=== PATIENT | female | born 1965 | race Caucasian/White ===

== ENCOUNTER 2022-11-28 20:17 | Emergency (ER) | payer BC, SELFPAY ==
[2022-11-28 20:40] VITALS: BP 140/89; PULSE 89; RESP 18; TEMP 36.7; O2SAT 99; BMI 33.3
[2022-11-28 21:41] VITALS: BP 139/94
--- NOTE | 2022-11-28 21:42 | ED.NURSE ---
Orthostatic readings: Lyin/94, HR 87, sitting 140/89, HR 87, standin/106, HR 89. Blood pressure cuff on right upper arm
[2022-11-28] MEDS: LORazepam 1 MG TABLET 0.5 MG PO (21:47)
[2022-11-28] MEDS: GI COCKTAIL (VISC LIDO/ANTACID) 30 ML PO (21:48)
[2022-11-28 21:59] LABS: Chloride* 107 mmol/L (96-114); Potassium* 4.2 mmol/L (3.6-5.1); Sodium* 135 mmol/L (135-149)
[2022-11-28 22:02] LABS: Blood Urea Nitrogen* 14 mg/dL (7-30); Calcium* 9.1 mg/dL (8.4-10.6); Carbon Dioxide* 23 mmol/L (20-32); Creatinine* 0.7 mg/dL (0.5-1.5); Est. Creatinine Clearance* 80.75; Estimated Glomerular Filt Rate 101 ml/min; Glucose* 119 mg/dL (60-115)
[2022-11-28 22:03] LABS: D Dimer Quantitative* 0.27 ug/ml (0.00-0.50)
[2022-11-28 22:15] LABS: Troponin I* < 0.01 ng/mL (0.01-0.04)
--- NOTE | 2022-11-29 07:42 | ED_ITS ---
HPI - General Adult General Chief complaint: Unspecified Complaint, Adult Stated complaint: High Blood Pressure Tachy Shaky Time Seen by Provider: 11/28/22 20:49 History of Present Illness HPI narrative: 57-year-old woman presenting to the emergency department with concern of potential heart attack. She describes about 6 hours ago was anticipating readying for a conversation about art yarsani. This was to be done virtually. She describes some feelings of lightheadedness that may have been somewhat orthostatic in nature. Diaphoretic, nausea in particular a prominent feature that came and went. No fever. I do not believe she actually vomited. And then some persistent discomfort in the epigastrium. Does not really have heartburn though recalls some ulcers in the past? Further conversation does reveal history of anxiety as well. She has been recently experiencing some episodes of tingling this in her extremities, her hands, symmetrical. Does have a history of migraines usually affecting the left side of her head. Was seen last week ultimately in emergency department with scans for right-sided head pain. This workup apparently was negative. She was however diagnosed subsequently with shingles on the left side of her face/head and neck. Has not had any lesions. Describes more of a burning sensation. Initiated on Valtrex. Is essentially asymptomatic now. Feeling how she did earlier today Ms. Chappell checked her blood pressure and found it to be alarmingly elevated at 146/103. Has been diagnosed with high blood pressure. Was initiated on metoprolol for what I suspect was undiagnosed possibly anxiety related tachyarrhythmia/flares of anxiety. Recalls also tremor so much so that she could not open a package recently. Sounds like this may have also been related to some stress/anxiety. Also takes amlodipine. She has not been having unusual lower extremity edema Reviewing family history it sounds as though father had early ?minor? strokes. Related Data Home Medications Medication Instructions Recorded Confirmed amlodipine 5 mg tablet 5 mg PO DAILY 11/28/22 11/28/22 duloxetine 30 mg capsule,delayed 30 mg PO DAILY 11/28/22 11/28/22 release duloxetine 60 mg capsule,delayed 60 mg PO DAILY 11/28/22 11/28/22 release metoprolol succinate 25 mg 25 mg PO DAILY 11/28/22 11/28/22 tablet,extended release 24 hr valacyclovir 1 gram tablet 1,000 mg PO 3XD 11/28/22 11/28/22 Allergies Allergy/AdvReac Type Severity Reaction Status Date / Time No Known Drug Allergies Allergy Verified 11/28/22 20:42 Review of Systems Status of ROS: Reports: 10 or more systems reviewed and unremarkable except as noted in History and below PFSH PFS Social History Smoking Status: Never smoker How often do you have a drink containing alcohol: monthly or less AUDIT-C Alcohol total score: 1 Non-prescribed substance use: denies use Exam Narrative: Exam Narrative: Very pleasant. Does appear mildly anxious. Does have subtle initially resting tremor of left greater than right hand. Seems generally tense. Breathing easily. CN 2 - 12 intact. Lungs are clear. No inflammatory changes about the head or neck. Head is atraumatic. Is no nystagmus. Heart with regular rate and rhythm. No murmur rub or gallop identified. Abdomen is soft and a little uncomfortable to palpation in the epigastrium. Overweight. Extremities are wi thout edema well perfused. Moving all extremities otherwise without difficulty. No apparent loss of sensation. Const: Vital Signs, click to edit/add: Vital Signs - 24 hr 11/28/22 20:40 11/28/22 21:41 Temperature 98.1 F Pulse Rate [Right Pulse Oximeter] 89 Respiratory Rate 18 Blood Pressure [Ri ght Upper Arm] 140/89 H Blood Pressure [or thostatic lying Ri ght Arm] 139/94 H Pulse Oximetry 99 Oxygen Delivery Me thod Room Air Documenting provider has reviewed patient's vital signs: yes Course Vital Signs Vital signs: Initial Vital Signs Temperature 98.1 F 11/28/22 20:40 Temperature Source Temporal Artery Scan 11/28/22 20:40 Pulse Rate 89 11/28/22 20:40 Respiratory Rate 18 11/28/22 20:40 Blood Pressure 140/89 H 11/28/22 20:40 Blood Pressure Mean 106 11/28/22 20:40 Blood Pressure Position Sitting 11/28/22 20:40 Pulse Oximetry 99 11/28/22 20:40 Oxygen Delivery Method Room Air 11/28/22 20:40 Vital Signs Temperature 98.1 F 11/28/22 20:40 Pulse Rate 89 11/28/22 20:40 Respiratory Rate 18 11/28/22 20:40 Blood Pressure 140/89 H 11/28/22 20:40 Pulse Oximetry 99 11/28/22 20:40 Oxygen Delivery Method Room Air 11/28/22 20:40 Temperature 98.1 F 11/28/22 20:40 Pulse Rate 89 11/28/22 20:40 Respiratory Rate 18 11/28/22 20:40 Blood Pressure 139/94 H 11/28/22 21:41 Pulse Oximetry 99 11/28/22 20:40 Oxygen Delivery Method Room Air 11/28/22 20:40 Medical Decision Making MDM Narrative Medical decision making narrative: Given the constellation of symptoms, recent suspected shingles outbreak, baseline irritability consistent with muscular tension I see an EKG, I think anxiety is likely explanation here. I agree however with Ms. Chappell that certainly cardiovascular causes need to be evaluated as well given potentially atypical nature in a woman. Differential would include pulmonary embolus, tachyarrhythmia/dysrhythmia, attacks of anxiety, dyspepsia/ulcers, orthostatic hypotension, TIA, liver/gallbladder disease, ischemic heart disease, vascular disruption. We did trial a GI cocktail as well as given half a mg oral lorazepam. This did settle the discomfort in her stomach although did have a little increase in nausea. Orthostatics were normal though mildly symptomatic. Labs ultimately are reassuring and symptoms are improved. Has been continued on metoprolol. Perhaps instead would benefit from propranolol as a p.r.n. allowing then increased target heart rate with activity. See patient discharge plan Lab Data Lab results reviewed: Yes I reviewed the patient's lab results Labs: Lab Results 11/28/22 Range/Units 21:30 Hgb 14.0 (12.0-16.0) gm/dL D-Dimer Quant (PE/DVT) 0.27 (0.00-0.50) ug/ml Sodium 135 (135-149) mmol/L Potassium 4.2 (3.6-5.1) mmol/L Chloride 107 (96-114) mmol/L Carbon Dioxide 23 (20-32) mmol/L BUN 14 (7-30) mg/dL Creatinine 0.7 (0.5-1.5) mg/dL Estimated Creat Clear 80.75 Estimated GFR 101 ml/min Glucose 119 H (60-115) mg/dL Calcium 9.1 (8.4-10.6) mg/dL Troponin I < 0.01 L (0.01-0.04) ng/mL ECG Data Attestation: I personally reviewed and interpreted this ECG as follows: (Normal sinus rhythm rate of 85. A good deal of baseline irritability ) Discharge Plan Discharge Clinical Impression: Anxiety, Dyspepsia Patient Disposition: Home w/ Parent or Adult Condition: Improved Additional Instructions: Consider taking a medication like omeprazole 20 mg once or twice a day for 2 weeks. This might settle down building stomach irritation or a potential ulcer. Reassess at that point. It does seem like anxiety is a leading factor here. Sounds like you been working at managing this for a long time. And you have been under some stress lately especially evidenced by apparent shingles. Sometimes it is hard to realize the stress one is internalizing. Unfortunately it is hard to separate anxiety from some of those symptoms that would be consistent with heart attack. Guess I would just say that if symptoms seem more unusual, certainly chest pain especially accompanied with shortness of breath, unilateral arm discomfort or tingling as opposed to symmetrical, this might be reason to come in. Continue to get regular and quality sleep, stay well hydrated, get in a little heart pumping exercise daily. I would visit with your primary care provider to discuss the medications that you're taking including for blood pressure and specifically the metoprolol and as it relates to anxious feelings that you have. Prescriptions: No Action valacyclovir 1 gram tablet 1,000 mg PO 3XD amlodipine 5 mg tablet 5 mg PO DAILY metoprolol succinate 25 mg tablet extended release 24 hr 25 mg PO DAILY duloxetine 30 mg capsule,delayed release(DR/EC) 30 mg PO DAILY duloxetine 60 mg capsule,delayed release(DR/EC) 60 mg PO DAILY Follow Up/Referrals: Evelia Ortega MD [Primary Care Provider] - Stand Alone Forms: [employer] Info Instructions
== END 2022-11-28 22:37 | disposition home or self-care (01) ==
PROVIDERS: Emergency Provider Family Medicine; PCP Family Medicine
DX: F41.9 Anxiety disorder, unspecified (principal); R06.00 Dyspnea, unspecified
CPT/HCPCS: 36415; 80048; 84484; 85018; 85379; 93005; 99284; A9270